=== PATIENT | female | born 1985 | race Asian ===

== ENCOUNTER 2021-08-20 11:45 | Outpatient (RCR) | payer OTHER, SELFPAY ==
[2021-08-18 13:15] VITALS: BMI 35.2
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
--- NOTE | 2021-08-19 12:26 | PC.NURSE ---
I spoke to Amelie this morning and confirmed with her if it would be alright for me to talk to her mom about her care and to talk to her about how we can best support her in the program as we want to help with continued stabilization. Amelie agreed that we can talk to her mother Nava and stated her mother is supportive and that she lives in the same building as her. Amelie stated that her mother checked in with her this morning. Asked Amelie if she is taking her medication as prescribed and she stated she was. We also have verbal permission from patient via telehealth that patient consented to disclose her patient information from [facility] to her mother. Patients mother stated that patient was dx with Bipolar d/o 4 years ago and the last episode of arben prior to the most recent hospitalization was her worst episode. She stated symptoms had been building for months prior to hospitalization and stated patient was irritable and reactive, delusional, and had, outbursts . I asked patient's mother if she knew if patient had been taking her medications as prescribed and mother stated she thoughts she was as she saw that Amelie was using a pill organizer. Patients mother stated she wanted to help anyway she could and would be willing to help Amelie with her medications if Amelie would let her. Anahi Nguyen had a telehealth appointment with patient today and asked Amelie if she would be willing to have her mother help her with her medications for now for more support as she just got out of the hospital. Amelie agreed to have her mother help her manage her medications at this time and agreed to have me call her mother to discuss. Patient also has an appointment with Dr Quick on 08/24/21 at 10:00 am and patient told Marilou that she would be willing to take an injectable medication to help with her mood. I called patients mother and reviewed patient medications with her and let her know that Amelie was agreeable to have her help her with her medications and Amelie was agreeable to an increase in Trileptal medication which is now 600 mg BID. Patient has been experiencing some delusional content with some loose associations at times, is re-directable. Patient denied SI or HI. Is calm and cooperative, no irritability noted. Patient told me and her mother that she is enjoying the groups.
--- NOTE | 2021-08-19 13:07 | PC.NURSE ---
Case opened in treatment team.
--- NOTE | 2021-08-19 14:27 | PC.NURSE ---
Reviewed case in team today with Dr Garcia, Marilou Nguyen, Alanna Gutiérrez, and Mary Rosales. Patient presents with delusional, grandiose, tangential thought process and disorganized at times. Presents at other times with more cohesive and logical in conversation. Her mood is pleasant and cooperative and she is engageable in conversation. She is re-directable in group. No irritability/agitation noted. Patient denied SI or HI. Discussed with team regarding putting patient on a crisis alert as a precaution. Called and spoke to Melida from [employer] crisis and requested patient be put on alert and discussed patient behaviors and recent discharge from the hospital. Patient did miss the last group of the day and emailed staff stating that she is calling it a day as her body is sore and she needed to check in with her mother. I gave patient's mother the crisis number as a precaution.
--- NOTE | 2021-08-19 16:05 | PC.NURSE ---
I called pt and asked her to pls call to review treatment plan.
--- NOTE | 2021-08-20 08:35 | PC.NURSE ---
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 and while in group yesterday staff stated the topic was about safety and patient talked about surrounding herself with people who have guns to feel safe, she said she does not own a gun but knows powerful people. [facility] crisis is aware. Anahi Nguyen and I checked in with patient this morning. She reports she went out last night and it was a wonderful magical night. She stated her body is tired and she needs to rest. Patient did state that her mother is coming to see her to help her with her medications this morning. Asked patient if she would check in with [facility] this morning for a crisis evaluation for more support. Patient stated she feels she needs more support and agreed to call crisis after getting off the phone with us and will call us back afterwards. Patient stated she called [facility] crisis and spoke to Yusuf, she stated she told him about her night last night and how exhausted she felt as she was out late. Patient denied using any substances including ETOH. Patient stated her mother is coming over shortly to help her with her medications so she may be late to morning meeting however plans on attending groups today.
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
--- NOTE | 2021-08-23 15:02 | PC.NURSE ---
I called and left message for pt. I asked her to please call.
--- NOTE | 2021-08-23 15:02 | P.EN_ITS ---
Event Note Date of Service: 08/23/21 Event Note: This underwriter solicitation director contacted Dr. Shantelle Quick (patient's outpatient provid er) as well as Dr. Kimbrough to notify them that client did not come to partial again today. Mother had called program to report daughter was continuing with manic behaviors, delusional thought. [employer] crisis had been involved, and was asked to re-evaluate today due to patient's erratic behavior. Crisis eval at this time is pending.
--- NOTE | 2021-08-23 15:02 | PM.EVENT ---
Event Note Date of Service: 08/23/21 Event Note: This residential mortgage underwriter contacted Dr. Shantelle Quick (patient's outpatient provider) as well as Dr. Kimbrough to notify them that client did not come to partial again today. Mother had called program to report daughter was continuing with manic behaviors, delusional thought. [employer] crisis had been involved, and was asked to re-evaluate today due to patient's erratic behavior. Crisis eval at this time is pending.
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
== END 2021-08-24 08:49 | disposition home or self-care (01) ==
LOC: HO.PHPA 11:45
PROVIDERS: PCP Family Medicine; Visit Provider Psychiatry & Neurology Psychiatry
DX: F31.30 Bipolar disorder, current episode depressed, mild or moderate severity, unspecified (principal); F90.0 Attention-deficit hyperactivity disorder, predominantly inattentive type; F43.10 Post-traumatic stress disorder, unspecified; M79.7 Fibromyalgia
CPT/HCPCS: 90791; 90853